=== PATIENT | male | born 1960 | race Caucasian/White ===

== ENCOUNTER 2023-01-09 22:18 | Emergency (ER) | payer OTHER ==
[2023-01-09] MEDS ORDERED: Ketorolac 30 MG/ML SDV IM ONE (23:05)
[2023-01-09] MEDS ORDERED: traMADol 50 MG Tab PO ONE (23:06)
[2023-01-09] MEDS ORDERED: Lactulose Soln 10 GM/15 ML 30 ML UD Cup PO ONE (23:23)
[2023-01-09] MEDS ORDERED: Metoprolol Tartrate 25 MG Tab PO ONE (23:30)
[2023-01-09] MEDS ORDERED: Take Home: traMADol 50 MG, 4 Tab Pack PO ONE (23:30)
== END 2023-01-09 23:50 | disposition home or self-care (01) ==
LOC: LL.ED 22:18
DX: R10.32 Left lower quadrant pain (principal); I10 Essential (primary) hypertension; E11.9 Type 2 diabetes mellitus without complications; E78.00 Pure hypercholesterolemia, unspecified; Z79.4 Long term (current) use of insulin; Z79.899 Other long term (current) drug therapy
CPT/HCPCS: 74019; 96372; 99284; A9270-GY; J1885